=== PATIENT | female | born 2000 | race Hispanic/Latino ===

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

== ENCOUNTER 2021-06-24 07:47 | Emergency (ER) | payer OTHER | END 2021-06-24 10:08 | disposition home or self-care (01) | LOC: ERS 07:47 | DX: S92.511A Displaced fracture of proximal phalanx of right lesser toe(s), initial encounter for closed fracture (principal); X58.XXXA Exposure to other specified factors, initial encounter ==

== ENCOUNTER 2021-09-08 08:04 | Emergency (ER) | payer OTHER ==
[2021-09-08] MEDS ORDERED: Boostrix 0.5 ML (Tdap) VIAL ONE (08:28)
== END 2021-09-08 09:55 | disposition home or self-care (01) ==
LOC: ERS 08:04
DX: S61.216A Laceration without foreign body of right little finger without damage to nail, initial encounter (principal); X99.1XXA Assault by knife, initial encounter; Z23 Encounter for immunization
CPT/HCPCS: 12001; 90471; 90715

== ENCOUNTER 2022-10-04 03:34 | Emergency (ER) | payer OTHER ==
[2022-10-04] MEDS ORDERED: Ondansetron PF 4 MG/2 ML Vial ONE (03:46)
[2022-10-04 04:01] LABS: #Basophils 0.1 thou/uL (0.0-0.2); #Eosinphils 0.1 thou/uL (0.0-0.7); #Lymphocytes 3.4 thou/uL (1.20-3.40); #Monocytes 0.6 thou/uL (0.11-0.59); #Neutrophils 8.2 thou/uL (1.40-6.50); %Basophils 0.7 % (0.0-1.0); %Eosinophils 1.2 % (0.0-10.0); %Lymphocytes 27.5 % (21.0-51.0); %Monocytes 4.6 % (0.0-10.0); %Neutrophils 66.1 % (42.0-75.0); Mean Corpuscular HGB CONC 35.1 g/dL (32.0-36.0); Mean Corpuscular Hemoglobin 32.7 pg (27.0-31.0); Mean Corpuscular Volume 93.1 fl (78.0-98.0); Mean Platelet Volume 7.5 fL (7.4-10.4); Platelet Count 317 10x3/uL (130-400); RBC Distribution Width 12.1 % (11.5-14.5); Red Blood Cell (RBC) Count 3.67 mill/uL (4.20-5.40); White Blood Cell (WBC) Count 12.4 10x3/uL (4.8-10.8)
[2022-10-04 04:15] LABS: ALT (SGPT) 22 U/L (8-55); AST (SGOT) 17 U/L (5-34); Albumin 4.3 g/dL (3.5-5.0); Alkaline Phosphatase 61 U/L (40-110); Anion Gap 14 mmol/L (10-20); BUN (Urea Nitrogen) 6 mg/dL (7.0-18.7); Bilirubin, Total 0.4 mg/dL (0.2-1.2); Calc. Creatinine Clearance 0 mL/min (70-130); Calcium 9.4 mg/dL (7.8-10.44); Carbon Dioxide 19 mmol/L (22-29); Chloride 106 mmol/L (98-107); Estimated GFR 132; Glucose 97 mg/dL (70-105); Protein, Total 7.3 g/dL (6.0-8.3); Sodium 135 mmol/L (136-145)
[2022-10-04 04:31] LABS: Bacteria/HPF None Seen HPF (None Seen); Bilirubin Negative (Negative); Blood, Urine Negative (Negative); Clarity Clear (Clear); Glucose, Urine (Dipstick) Normal (Negative); Ketone, Urine Negative (Negative); Leukocyte 500 Leu/uL (Negative); Nitrite Negative (Negative); Protein, Urine (Dipstick) Negative (Neg-Trace); RBC/HPF 0-3 HPF (0-3); Specific Gravity, Urine 1.021 (1.002-1.036); Urobilinogen Normal mg/dL (Less than 2); pH, Urine 6.5 (5.0-9.0)
== END 2022-10-04 06:34 | disposition home or self-care (01) ==
LOC: ERS 03:34
DX: O99.612 Diseases of the digestive system complicating pregnancy, second trimester (principal); O99.892 Other specified diseases and conditions complicating childbirth; O20.0 Threatened abortion; D72.829 Elevated white blood cell count, unspecified; Z3A.19 19 weeks gestation of pregnancy
CPT/HCPCS: 36415; 76815; 80053; 81003; 81015; 84702; 85025; 86900; 86901; 87086; 96360; J2405

== ENCOUNTER 2022-10-31 10:32 | Outpatient (CLI) | payer OTHER | END 2022-10-31 10:33 | disposition home or self-care (01) | LOC: BICULT 10:32 | PROVIDERS: ATTEND Family Medicine | DX: Z34.82 Encounter for supervision of other normal pregnancy, second trimester (principal); Z3A.23 23 weeks gestation of pregnancy | CPT/HCPCS: 76805 ==